=== PATIENT | male | born 1965 | race Caucasian/White ===

== ENCOUNTER 2020-08-05 09:25 | Outpatient (CLI) | payer BC ==
--- NOTE | 2020-08-05 11:06 | RAD ---
RIGHT FOOT 3 VIEWS: Date: 08/05/2020 HISTORY: Right foot pain. FINDINGS/IMPRESSION: A plantar calcaneal spur is present. No fracture, dislocation, or bony destruction is identified. The re are minimal degenerative changes in the first MTP joint. POS: OFF
== END 2020-08-05 09:26 | disposition home or self-care (01) ==
LOC: MADRAD 09:25
PROVIDERS: ATTEND Family Medicine
DX: M79.671 Pain in right foot (principal); M19.071 Primary osteoarthritis, right ankle and foot; M77.31 Calcaneal spur, right foot

== ENCOUNTER 2021-07-28 15:21 | Outpatient (CLI) | payer OTHER ==
[~2021-07-28 15:21] MED LIST: Iopamidol 370 76% 100 ML VIAL ONE
[2021-07-28 16:03] LABS: #Basophils 0.1 thou/uL (0.0-0.2); #Eosinphils 0.2 thou/uL (0.0-0.7); #Monocytes 0.6 thou/uL (0.11-0.59); #Neutrophils 2.7 thou/uL (1.40-6.50); %Basophils 1.4 % (0.0-1.0); %Eosinophils 3.1 % (0.0-10.0); %Lymphocytes 36.3 % (21.0-51.0); %Neutrophils 48.2 % (42.0-75.0); Hemoglobin 15.8 g/dL (14.0-18.0); Mean Corpuscular Hemoglobin 29.4 pg (27.0-31.0); Mean Corpuscular Volume 94.6 fL (78.0-98.0); Platelet Count 294 thou/uL (130-400); RBC Distribution Width 12.5 % (11.5-14.5); Red Blood Cell (RBC) Count 5.39 mill/uL (4.70-6.10); White Blood Cell (WBC) Count 5.6 thou/uL (4.8-10.8)
== END 2021-07-28 15:22 | disposition home or self-care (01) ==
LOC: MADLAB 15:21
PROVIDERS: ATTEND Family Medicine
DX: R22.1 Localized swelling, mass and lump, neck (principal)
CPT/HCPCS: 36415; 70491; 85025; 86140; Q9967